=== PATIENT | male | born 1960 | race African-American/Black ===

== ENCOUNTER 2016-12-12 10:01 | Emergency (ER) | payer OTHER ==
--- NOTE | 2016-12-12 10:35 | ERRECORD ---
[facility] EMERGENCY RECORD HPI COUGH (10:22 JL) CHIEF COMPLAINT: Patient presents for evaluation of cough, non-productive, Patient presents for evaluation of Pt with few weeks of cough. Initially with fevers but resolved. Now with 3-4 days of left chest pain only with coughing. No other symptoms. Pt has been on Augmentin and now just finished a course of Levaquin but no help. He is primarily worried about the pain. HISTORIAN: History provided by patient. LOCATION: Symptoms are localized, most severe to left lower chest. TIME COURSE: Gradual onset of symptoms, There has been no change in the patient's symptoms over time, are intermittent. ASSOCIATED WITH: Associated with chest pain, No associated nausea, Associated with upper respiratory infection, No associated wheezing, Fever resolved a couple weeks ago. Pt with intermittent diarrhea since starting abx. EXACERBATED BY: Patient's condition exacerbated by cough. RELIEVED BY: Patient's condition relieved by nothing. ROS (10:24 JL) CONSTITUTIONAL: no fever currently. ENT: Historian denies rhinorrhea, denies sore throat. CARDIOVASCULAR: Historian reports chest pain, pleuritic. RESPIRATORY: Historian reports cough, denies shortness of breath, denies sputum. GI: Historian denies abdominal pain, reports diarrhea, denies nausea, denies vomiting. GENITOURINARY MALE: Historian denies dysuria, denies hematuria. MUSCULOSKELETAL: Historian denies back pain. SKIN: Historian denies rash, denies skin changes. NEUROLOGIC: Historian denies dizziness, denies headache. PAST MEDICAL HISTORY MEDICAL HISTORY: Past medical history includes history of hypertension, pulmonary disease. asthma. (10:05 [facility]) MALE SURGICAL HISTORY: Patient has no surgical history. (10:05 [facility]) PSYCHIATRIC HISTORY: No previous psychiatric history. (10:05 [facility]) SOCIAL HISTORY: Patient denies alcohol use, Patient denies drug use, Patient has no smoking history. (10:05 [facility]) NOTES: Nursing records reviewed, Agree with nursing records. (10:26 JL) KNOWN ALLERGIES No recorded allergies &a-1R&a+25V*p+0X*r0188R*c202B*c15G*c2P*p-0X&a-25V&a+1R Name: Erich Ruiz : 1960 M56 MedRec: [id number] AcctNum: [id number] Prepared: MonDec 12, 2016 11:00 by Interface Page 1 of 3 pMD [facility] EMERGENCY RECORD CURRENT MEDICATIONS No recorded medications VITAL SIGNS (10:11 [facility]) VITAL SIGNS: BP: 123/81, Pulse: 87, Resp: 19, Temp: 98.7, Pain: 8, O2 sat: 98 on RA, Time: 12/12/2016 10:11. PHYSICAL EXAM (10:25 JL) CONSTITUTIONAL: Vital Signs Reviewed, Patient appears non toxic, Patient alert and oriented to person, place and time. EYES: Eye exam included findings of eyelids normal to inspection, Pupils equally round and reactive to light, Conjunctiva normal. ENT: Pharynx exam normal, Uvula exam normal, Tonsil exam normal, Mouth exam normal, mucous membranes moist. NECK: Neck exam included findings of normal range of motion, Trachea midline, no cervical adenopathy. RESPIRATORY CHEST: Respiratory exam included findings of no respiratory distress, Breath sounds clear, No wheezing, No rales, No rhonchi, Chest exam included findings of chest movement symmetrical. CARDIOVASCULAR: Cardiovascular exam included findings of heart rate regular rate and rhythm, Heart sounds normal. ABDOMEN MALE: Abdominal exam included findings of abdomen nontender, Bowel sounds normal. BACK: Back exam included findings of normal inspection. UPPER EXTREMITY: Upper extremity exam included findings of inspection normal. NEURO: [place] coma scale 15, Neuro exam findings include patient oriented to person, place and time, Speech normal. SKIN: Skin exam included findings of skin warm, dry, and normal in color, no rash. PSYCHIATRIC: Normal affect. PROBLEM LIST No recorded problems DIAGNOSIS (10:40 JL) FINAL: PRIMARY: Acute bronchitis. PRESCRIPTION (10:39 JL) acetaminophen-codeine: TABLET : 300 mg-30 mg : ORAL : Quantity: 1 Unit: tab(s) Route: ORAL Schedule: every 6 hours PRN Dispense: 15 May substitute. Refills: No Refills . NOTES: No Refills. ibuprofen: TABLET : 800 mg : ORAL : Quantity: 1 Unit: tab(s) Route: ORAL Schedule: every 8 hours PRN Dispense: 30 May substitute. Refills: No Refills . NOTES: ^s=No Refills No Refills. &a-1R&a+25V*p+0X*t8126Y*c202B*c15G*c2P*p-0X&a-25V&a+1R Name: Erich Ruiz : 1960 M56 MedRec: [id number] AcctNum: [id number] Prepared: MonDec 12, 2016 11:00 by Interface Page 2 of 3 pMD [facility] EMERGENCY RECORD DISPOSITION PATIENT: Disposition Type: Discharge, Disposition: *Discharge Home. (10:40 BRE) Patient left the department. (10:58 [facility]) Rivers: BRE=MD Ivan, Chialngo [facility]=LEVI Pugh, Karime &a-1R&a+25V*p+0X*d3421N*c202B*c15G*c2P*p-0X&a-25V&a+1R Name: Erich Ruiz : 1960 M56 MedRec: [id number] AcctNum: [id number] Prepared: MonDec 12, 2016 11:00 by Interface Page 3 of 3 pMD MTDD
--- NOTE | 2016-12-12 10:42 | PICIS ---
[facility] EMERGENCY RECORD TRIAGE (MonDec 12, 2016 10:04 [facility]) TRIAGE NOTES: Pt reporting CP for 5 days, cough for 2 weeks. Trouble breathing, hx asthma, ran a fever 2 weeks ago. (MonDec 12, 2016 10:04 [facility]) PATIENT: KG WEIGHT: 81.7 (est.). (10:47 [facility]) NAME: Erich Ruiz, AGE: 56, GENDER: male, : Mon1960, TIME OF GREET: MonDec 12, 2016 10:01, PREFERRED LANGUAGE: Lithuanian, ETHNICITY: Not or , ECODE BILLING MAP: [facility], SSN: [id number], Zip Code: [address], PHONE: , , PERSON ID: [id number], PCP: Casper BOSS). (MonDec 12, 2016 10:04 [facility]) . (10:57 [facility]) COMPLAINT: CHEST PAIN WHEN COUGHING. (10:47 [facility]) ADMISSION: URGENCY: 2 Emergent, ADMISSION SOURCE: Home, TRANSPORT: Walk-in, BED: ER -04. (MonDec 12, 2016 10:04 [facility]) IMMUNIZATIONS: Flu vaccine up to date, Tetanus not up to date. (10:05 [facility]) TRIAGE SCREENING: Patient denies suicidal ideation, Patient denies presence of domestic violence. (10:05 [facility]) PROVIDERS: TRIAGE NURSE: Karime Pugh RN. (MonDec 12, 2016 10:04 [facility]) KNOWN ALLERGIES No recorded allergies CURRENT MEDICATIONS No recorded medications VITAL SIGNS (10:11 [facility]) VITAL SIGNS: BP: 123/81, Pulse: 87, Resp: 19, Temp: 98.7, Pain: 8, O2 sat: 98 on RA, Time: 12/12/2016 10:11. NURSING ASSESSMENT: RESPIRATORY /CHEST (10:11 [facility]) CONSTITUTIONAL: Complex assessment performed, Patient arrives, via hospital wheelchair, Gait steady, History obtained from patient, Patient appears comfortable, Patient cooperative, Patient alert, Oriented to person, place and time, Skin warm, Skin dry, Skin normal in color, Mucous membranes pink, Mucous membranes moist, Patient is well-groomed, Pt reporting mild CP for 3-4 days, accompanied by a cough for 2 weeks. Pain from coughing. Just finished a round of antibiotics. told he had "chronic bronchitis.". PAIN: midsternal, to the left chest, on a scale 0-10 patient rates pain as 8. RESPIRATORY/CHEST: Breath sounds clear, Respiratory assessment findings include respiratory effort easy, Respirations regular, Conversing normally, Neck and chest exam findings include trachea midline, Chest expansion equal, Chest movement symmetrical, Notes: Very slight wheeze in L lower lobe. ENT: Nasal assessment findings include nose normal to inspection, Sinuses normal, Nasal mucosa normal, no associated fever, &a-1R&a+25V*p+0X*c2255Z*c202B*c15G*c2P*p-0X&a-25V&a+1R Name: Erich Ruiz : 1960 M56 MedRec: [id number] AcctNum: [id number] Prepared: MonDec 12, 2016 11:00 by Interface Page 1 of 5 D [facility] EMERGENCY RECORD Associated with headache. SAFETY: Side rails up, Cart/Stretcher in lowest position, Call light within reach, Hospital ID band on. VITAL SIGNS: BP: 123, / 81, Pulse: 87, Resp: 19, Temp: 98.7, Pain: 8, O2 sat: 98, on: RA. NURSING PROCEDURE: INFORMATION SECURITY MANAGER (10:08 [facility]) INFORMATION SECURITY MANAGER: Cardiac monitoring indicated for complaint of chest pain, Patient placed on human resources mgr, Patient placed on non-invasive blood pressure monitor, Patient placed on continuous pulse oximetry. FOLLOW-UP: After procedure, alarms set and on, After procedure, patient tolerating monitoring. SAFETY: Side rails up, Cart/Stretcher in lowest position, Call light within reach, Hospital ID band on. NURSING PROCEDURE: DISCHARGE NOTE (10:52 [facility]) DISCHARGE: Patient discharged to home, ambulating without assistance, driving self, unaccompanied, Discharge instructions given to patient, Simple or moderate discharge teaching performed, by LEVI Schaffer, Patient treated and evaluated by physician. BELONGINGS: Belongings and valuables with patient upon arrival to the Emergency Department include:, Belongings and valuables with patient at time of discharge include:. SAFETY: Side rails up, Cart/Stretcher in lowest position, Call light within reach, Hospital ID band on. NURSING PROCEDURE: EKG CHART (10:07 [facility]) PATIENT IDENTIFIER: Patient actively involved in identification process. EKG: EKG indicated for complaint of chest pain. FOLLOW-UP: After procedure, EKG for interpretation given to Dr. Love. SAFETY: Side rails up, Cart/Stretcher in lowest position, Call light within reach, Hospital ID band on. ORDER DETAILS Order Name: EKG 12 Lead in Emergency Room, Status: Active, Time: 10:05 12/12/2016, User: [facility], - Ordered for: MD Love Joshua, - Entered by: LEVI Pugh Aynor - [facility] Dec 12, 2016 10:05, - Quantity: 1, Order Name: XR Chest Pa & Lat STANDARD, Status: Active, Time: 10:21 12/12/2016, User: [facility], - Ordered for: MD Love Joshua, - Entered by: MD Love Joshua - [facility] Dec 12, 2016 10:21, - Quantity: 1. HPI COUGH (10:22 BRE) &a-1R&a+25V*p+0X*o3963N*c202B*c15G*c2P*p-0X&a-25V&a+1R Name: Erich Ruiz : 1960 M56 MedRec: [id number] AcctNum: [id number] Prepared: MonDec 12, 2016 11:00 by Interface Page 2 of 5 pMD [facility] EMERGENCY RECORD CHIEF COMPLAINT: Patient presents for evaluation of cough, non-productive, Patient presents for evaluation of Pt with few weeks of cough. Initially with fevers but resolved. Now with 3-4 days of left chest pain only with coughing. No other symptoms. Pt has been on Augmentin and now just finished a course of Levaquin but no help. He is primarily worried about the pain. HISTORIAN: History provided by patient. LOCATION: Symptoms are localized, most severe to left lower chest. TIME COURSE: Gradual onset of symptoms, There has been no change in the patient's symptoms over time, are intermittent. ASSOCIATED WITH: Associated with chest pain, No associated nausea, Associated with upper respiratory infection, No associated wheezing, Fever resolved a couple weeks ago. Pt with intermittent diarrhea since starting abx. EXACERBATED BY: Patient's condition exacerbated by cough. RELIEVED BY: Patient's condition relieved by nothing. ROS (10:24 JL) CONSTITUTIONAL: no fever currently. ENT: Historian denies rhinorrhea, denies sore throat. CARDIOVASCULAR: Historian reports chest pain, pleuritic. RESPIRATORY: Historian reports cough, denies shortness of breath, denies sputum. GI: Historian denies abdominal pain, reports diarrhea, denies nausea, denies vomiting. GENITOURINARY MALE: Historian denies dysuria, denies hematuria. MUSCULOSKELETAL: Historian denies back pain. SKIN: Historian denies rash, denies skin changes. NEUROLOGIC: Historian denies dizziness, denies headache. PAST MEDICAL HISTORY MEDICAL HISTORY: Past medical history includes history of hypertension, pulmonary disease. asthma. (10:05 [facility]) MALE SURGICAL HISTORY: Patient has no surgical history. (10:05 [facility]) PSYCHIATRIC HISTORY: No previous psychiatric history. (10:05 [facility]) SOCIAL HISTORY: Patient denies alcohol use, Patient denies drug use, Patient has no smoking history. (10:05 [facility]) NOTES: Nursing records reviewed, Agree with nursing records. (10:26 [facility]) PHYSICAL EXAM (10:25 [facility]) CONSTITUTIONAL: Vital Signs Reviewed, Patient appears non toxic, Patient alert and oriented to person, place and time. EYES: Eye exam included findings of eyelids normal to inspection, &a-1R&a+25V*p+0X*h7091B*c202B*c15G*c2P*p-0X&a-25V&a+1R Name: Erich Ruiz : 1960 M56 MedRec: [id number] AcctNum: [id number] Prepared: MonDec 12, 2016 11:00 by Interface Page 3 of 5 pMD [facility] EMERGENCY RECORD Pupils equally round and reactive to light, Conjunctiva normal. ENT: Pharynx exam normal, Uvula exam normal, Tonsil exam normal, Mouth exam normal, mucous membranes moist. NECK: Neck exam included findings of normal range of motion, Trachea midline, no cervical adenopathy. RESPIRATORY CHEST: Respiratory exam included findings of no respiratory distress, Breath sounds clear, No wheezing, No rales, No rhonchi, Chest exam included findings of chest movement symmetrical. CARDIOVASCULAR: Cardiovascular exam included findings of heart rate regular rate and rhythm, Heart sounds normal. ABDOMEN MALE: Abdominal exam included findings of abdomen nontender, Bowel sounds normal. BACK: Back exam included findings of normal inspection. UPPER EXTREMITY: Upper extremity exam included findings of inspection normal. NEURO: [place] coma scale 15, Neuro exam findings include patient oriented to person, place and time, Speech normal. SKIN: Skin exam included findings of skin warm, dry, and normal in color, no rash. PSYCHIATRIC: Normal affect. EVENTS TRANSFER: Triage to Emergency Emergency Room -04. (10:04 [facility]) Removed from Emergency Emergency Room -04. (10:58 [facility]) PROBLEM LIST No recorded problems DIAGNOSIS (10:40 [facility]) FINAL: PRIMARY: Acute bronchitis. DISPOSITION PATIENT: Disposition Type: Discharge, Disposition: *Discharge Home. (10:40 [facility]) Patient left the department. (10:58 [facility]) INSTRUCTION (10:40 [facility]) DISCHARGE: BRONCHITIS, NO ABX (ADULT). FOLLOWUP: Follow up with Primary Care Physician in 7-10 days. PRESCRIPTION (10:39 [facility]) acetaminophen-codeine: TABLET : 300 mg-30 mg : ORAL : Quantity: 1 Unit: tab(s) Route: ORAL Schedule: every 6 hours PRN Dispense: 15 May substitute. Refills: No Refills . NOTES: No Refills. ibuprofen: TABLET : 800 mg : ORAL : Quantity: 1 Unit: tab(s) Route: ORAL Schedule: every 8 hours PRN Dispense: 30 May substitute. Refills: No Refills . NOTES: ^s=No Refills &a-1R&a+25V*p+0X*a0493M*c202B*c15G*c2P*p-0X&a-25V&a+1R Name: Erich Ruiz : 1960 M56 MedRec: [id number] AcctNum: [id number] Prepared: MonDec 12, 2016 11:00 by Interface Page 4 of 5 pMD [facility] EMERGENCY RECORD No Refills. IMAGING (10:55 [facility]) *SUPPLY CHARGE SHEET: Image captured from scanner. *DISCHARGE INSTRUCTIONS RECEIPT: Image captured from scanner. *EKG: Image captured from scanner. ADMIN DIGITAL SIGNATURE: MD Love Joshua. (10:26 [facility]) MD Love Joshua. (10:40 [facility]) Rivers: BRE=MD Love Joshua [facility]=VERNELL Gonzáles Ronnie [facility]=LEVI Pugh, Karime &a-1R&a+25V*p+0X*s3687O*c202B*c15G*c2P*p-0X&a-25V&a+1R Name: Sara Erich Cruz : 1960 M56 MedRec: [id number] AcctNum: [id number] Prepared: MonDec 12, 2016 11:00 by Interface Page 5 of 5 pMD MTDD
--- NOTE | 2016-12-12 10:49 | RAD ---
PA AND LATERAL VIEWS CHEST: HISTORY: Chest pain, cough, fever. FINDINGS: The heart size is normal. The lungs are expanded without focal areas of consolidation, pneumothorax , or pleural effusions. There is an old healed fracture of the left 6th rib. IMPRESSION: No acute process. POS: [facility]
== END 2016-12-12 10:55 | disposition home or self-care (01) ==
LOC: NAV ERS 10:01
DX: J20.9 Acute bronchitis, unspecified (principal); J45.909 Unspecified asthma, uncomplicated
CPT/HCPCS: 71020; 93005